=== PATIENT | female | born 1995 ===

== ENCOUNTER 2025-01-03 13:08 | Inpatient (IN) | payer BC, SELFPAY ==
[2025-01-03] VITALS (24 sets, daily range): BP systolic 128–164; BP diastolic 74–93; PULSE 63–71; RESP 16; TEMP 36.6–37.1; O2SAT 97–99
[2025-01-03 12:26] LABS: PROTEIN 55.8 mg/dL; Prot/Crea Ur Ratio 0.29
[2025-01-03 12:34] LABS: HCT 38.9 % (36.0-46.0); HGB 13.4 g/dL (11.2-15.7); MCH 29.5 pg (27.0-33.0); MCHC 34.4 % (32.0-36.0); MCV 86 fL (80-95); MPV 10.6 fL (8.0-11.0); Platelet Count 250 10^3/uL (130-400); RBC 4.54 10^6/uL (3.93-5.22); RDW 12.2 % (11.7-14.6); WBC 12.81 10^3/uL (4.4-10.8)
[2025-01-03 13:28] LABS: ALT 23 U/L (14-59); AST 25 U/L (15-37); Alkaline Phosphatase 247 U/L (46-116); Anion Gap 11.5 mmol/L (3-11); BUN 10 mg/dL (7-18); Bilirubin, Total 0.6 mg/dL (0.2-1.0); CO2 23.5 mmol/L (21.0-32.0); CREATININE 0.6 mg/dL (0.55-1.02); Chloride 103 mmol/L (98-107); Estimated GFR 123.76 (mL/min/1.73m2); Glucose 83 mg/dL (74-106); Potassium 3.8 mmol/L (3.5-5.1); Sodium 138 mmol/L (136-145); Total Protein 6.1 g/dL (6.4-8.2); Uric Acid 5.7 mg/dL (2.6-6.0)
--- NOTE | 2025-01-03 14:55 | HPE_ITS ---
Date of service: 01/03/25 Time of Service: 14:56 Assessment and Plan Assessment and plan (1) : Status: Acute Assessment and plan: 29yo at 38.1 weeks presented to clinic with severe range hypertension, vague symptoms and proteinuria today. was previously uncomplicated. After discussion with patient and OB, we will proceed with induction. Will use nifedipine prn for severe range blood pressures. Hold on mag unless pressures rise. Monitor at least every 30 min, more if pressures are elevated. Start induction now with misoprostil. Likely move to pitocin. She is already 1-2//-3. Feels well now. Anticipate . (2) Gestational hypertension affecting first : Status: Acute OB-HPI Labor/Delivery History of Present Illness Reason for Visit: NST/Labs/BP check Chief Complaint: Signs/Symptoms Gestational HTN , Associated Signs and Symptoms of GestationalHTN: nausea, elevated BP. JOHNNY Calculator Estimated Delivery Date Method Current WG Current Estimate 01/16/25 LMP (Certain) 38w 1d History of Present Expected Delivery Route/Plan 29 yo at 38.1w by sure LMP with GBS+ A+ HepC- HIV-. She had an uncomplicated until pressures became elevated in the severe range today. 3+ protein in clinic with ratio here of .29. She was nauseated and fatigued. She presented to the center for monitoring after administration of 100mg Labetalol PO in the clinic. BP here was initially good in the 130s/80s but began to elevated to the 150s/90s. She is miller mildly here. After discussion with Dr Tan, we will proceed with induction for gestational hypertension. Review of Systems All systems reviewed & are unremarkable except as noted in HPI and below PFSH All Active Problems (Updated 01/03/25 @ 15:13 by Manny Renee) Gestational hypertension affecting first (Acute) (Acute) Social History Smoking risk assessment performed?: No History History 1 Para 0 Hx # Term Pregnancies Multiple births Hx # Pregnancies Ectopic pregnancies AB induced Hx Number of Living Children AB spontaneous Exam Physical Exam Vital signs: Temp Pulse Resp BP Pulse Ox 36.8 C 68 16 150/93 H 99 01/03/25 13:08 01/03/25 14:49 01/03/25 14:20 01/03/25 14:49 01/03/25 13:08 Vital Signs Reviewed: Yes Constitutional Constitutional: no acute distress Detailed Labor and Delivery Exam Dilation: 1.5 Effacement (%): 20 station: -3 Cervix position: posterior Consistency: medium Warren Score: Cervical Points Exam 0 1 2 3 Dilation Closed 1-2cm 3-4 cm 5-6cm Effacement 0-30% 40-50% 60-70% 80% Consistency Firm Medium Soft Station -3 -2 -1,0 +1,+2 Position Posterior Mid Anterior WARREN Score(Cervical Ripeness Score): 2 Amniotic Membrane Status: Intact Monitor Mode: External Contraction Frequency(min): 10 Contraction Duration(sec): 60 Contraction Intensity: Mild Fetus A Heart Rate Baseline: 130 Monitor Accelerations: 15 X 15 Monitor Decelerations: None Variability: Moderate (6-25 BPM) Presentation: Cephalic Categories: Category I HEENT Exam HEENT Exam: Normal Respiratory Exam Respiratory Exam: Normal Cardiovascular Exam Cardiovascular Exam: Normal Abdominal Exam Abdominal Exam: Normal Exam Exam: Normal Extremities Exam Extremities Exam: Normal Back/Spine/Pelvis Exam Back Exam: Normal Pelvis Adequate: Yes Skin Exam Skin Exam: Normal Neurological Exam Neurological Exam: Normal Psychiatric Exam Psychiatric Exam: Normal Results Results Group Beta Strep: Positive Blood Type: A+ Abnormal Lab Findings: Abnormal Labs 01/03/25 12:25 WBC 12.81 H Anion Gap 11.5 H Alkaline Phosphatase 247 H Total Protein 6.1 L Albumin 3.0 L Risk Assessment Risk for Shoulder Dystocia Increased Risk?: No Risk for Pre-Eclampsia Daily Dose ASA Indicated: No Risk for Post- Hemorrhage 36 Weeks: POSITIVE FOR: Gestational HTN or Pre-E At Risk?: Yes Counseled re: Active Management: Yes Date/Initials: [facility] [place] 01/03/25 Risks Reviewed Risks Reviewed Upon Admission: Yes
[2025-01-03] MEDS: miSOPROStol 25 MCG TAB PO (15:30)
[2025-01-03] MEDS: Labetalol 100 MG/20 ML VIAL IVP (23:58)
[2025-01-04] VITALS (111 sets, daily range): BP systolic 114–160; BP diastolic 60–92; PULSE 63–88; RESP 16–18; TEMP 36.3–36.9; O2SAT 92–100
--- NOTE | 2025-01-04 00:07 | W.PM.OBNL1 ---
Date of service: 01/04/25 Time of Service: 00:07 Pelvic Exam Dilation: 2 Effacement (%): 70 station: -2 Cervix Position: anterior Consistency: medium Vaginal Exam Presentation: Cephalic Contractions Monitor Mode: External Contraction Frequency(min): 2 Contraction Duration(sec): 60 Intensity: Moderate/Strong Fetus A Monitor: External (US) Heart Rate Baseline: 130 Presentation: Cephalic Variability: Moderate (6-25 BPM) Categories: Category I FHR Rhythm: Regular Characteristics: Normal Accelerations: 15 X 15 Decelerations: None Amniotic Membrane Status: Intact Assessment and Plan Assessment and plan (1) Gestational hypertension affecting first : Status: Acute Assessment and plan: at 38.1w here for induction due to gestational hypertension. She received one dose of miso at 3pm and began miller every 1-2 minutes. No further induction medications were given and she did progress with labor on her own. SVE is now 2/70/-2 and she is feeling strong contractions crying through some. Her blood pressure did elevate to 160/90 followed by 164/85. patellar pulses are a bit brisk, she denies headache or vision changes. At that point she did receive a dose of 10mg IV Labetalol and blood pressure came down to 146/78. Will continue to monitor closely. If BP does not stay controlled will start magnesium for seizure prophylaxis. Will also start pen when she begins dilating to ensure GBS prophylaxis. (2) : Status: Acute Objective Abnormal lab results 01/03/25 Range/Units 12:25 WBC 12.81 H (4.4-10.8) 10^3/uL Anion Gap 11.5 H (3-11) mmol/L Alkaline Phosphatase 247 H (46-116) U/L Total Protein 6.1 L (6.4-8.2) g/dL Albumin 3.0 L (3.4-5.0) g/dL Temp Pulse Resp BP Pulse Ox 37.0 C 68 16 146/78 H 97 01/03/25 20:53 01/04/25 00:06 01/03/25 20:53 01/04/25 00:06 01/03/25 20:53 Laboratory Results WBC 12.81 10^3/uL (4.4-10.8) H 01/03/25 12:25 RBC 4.54 10^6/uL (3.93-5.22) 01/03/25 12:25 Hgb 13.4 g/dL (11.2-15.7) 01/03/25 12:25 Hct 38.9 % (36.0-46.0) 01/03/25 12:25 MCV 86 fL (80-95) 01/03/25 12:25 MCH 29.5 pg (27.0-33.0) 01/03/25 12:25 MCHC 34.4 % (32.0-36.0) 01/03/25 12:25 RDW 12.2 % (11.7-14.6) 01/03/25 12:25 Plt Count 250 10^3/uL (130-400) 01/03/25 12:25 MPV 10.6 fL (8.0-11.0) 01/03/25 12:25 Sodium 138 mmol/L (136-145) 01/03/25 12:25 Potassium 3.8 mmol/L (3.5-5.1) 01/03/25 12:25 Chloride 103 mmol/L (98-107) 01/03/25 12:25 Carbon Dioxide 23.5 mmol/L (21.0-32.0) 01/03/25 12:25 Anion Gap 11.5 mmol/L (3-11) H 01/03/25 12:25 BUN 10 mg/dL (7-18) 01/03/25 12:25 Creatinine 0.6 mg/dL (0.55-1.02) 01/03/25 12:25 Est GFR (CKD-EPI 2020) 123.76 (mL/min/1.73m2) 01/03/25 12:25 Glucose 83 mg/dL (74-106) 01/03/25 12:25 Uric Acid 5.7 mg/dL (2.6-6.0) 01/03/25 12:25 Calcium 9.0 mg/dL (8.5-10.1) 01/03/25 12:25 Total Bilirubin 0.6 mg/dL (0.2-1.0) 01/03/25 12:25 AST 25 U/L (15-37) 01/03/25 12:25 ALT 23 U/L (14-59) 01/03/25 12:25 Alkaline Phosphatase 247 U/L (46-116) H 01/03/25 12:25 Total Protein 6.1 g/dL (6.4-8.2) L 01/03/25 12:25 Albumin 3.0 g/dL (3.4-5.0) L 01/03/25 12:25 Ur Random Creatinine 192.30 mg/dL 01/03/25 11:55 U Random Total Protein 55.8 mg/dL 01/03/25 11:55 U [place] Prot/Creat Ratio 0.29 01/03/25 11:55 ABO/Rh A Positive 01/03/25 12:25 Antibody Screen NEGATIVE 01/03/25 12:25 Subjective Interval history since last seen: Contractions have become significantly more painful over the last several hours. Results Hemoglobin/Hematocrit: Hgb 13.4 g/dL (11.2-15.7) 01/03/25 12:25 Hct 38.9 % (36.0-46.0) 01/03/25 12:25 Abnormal Lab Findings: Abnormal Labs 01/03/25 12:25 WBC 12.81 H Anion Gap 11.5 H Alkaline Phosphatase 247 H Total Protein 6.1 L Albumin 3.0 L
--- NOTE | 2025-01-04 02:22 | PGE_ITS ---
Date of service: 01/04/25 Time of Service: 02:22 Contractions Monitor Mode: None Fetus A Monitor: Doppler Heart Rate Baseline: 135 FHR Rhythm: Regular Characteristics: Normal Amniotic Membrane Status: Intact Assessment and Plan Assessment and plan (1) Gestational hypertension affecting first : Status: Acute Assessment and plan: Sonia is still doing well although starting to feel more pain with contractions. She is considering an epidural, but not requesting at this time. Her blood pressures are a bit labile, but mostly in goal range of under 150 since dose of labetalol at approx 2300. Will monitor BP q15min. If reaches severe range again, intend to treat per algorithm and start magnesium. I will give her a dose of hydroxizine for anxiety. Monitor closely. (2) : Status: Acute Objective Abnormal lab results 01/03/25 Range/Units 12:25 WBC 12.81 H (4.4-10.8) 10^3/uL Anion Gap 11.5 H (3-11) mmol/L Alkaline Phosphatase 247 H (46-116) U/L Total Protein 6.1 L (6.4-8.2) g/dL Albumin 3.0 L (3.4-5.0) g/dL Temp Pulse Resp BP Pulse Ox 37.0 C 67 16 144/73 H 97 01/03/25 20:53 01/04/25 02:00 01/03/25 20:53 01/04/25 02:00 01/03/25 20:53 Laboratory Results WBC 12.81 10^3/uL (4.4-10.8) H 01/03/25 12:25 RBC 4.54 10^6/uL (3.93-5.22) 01/03/25 12:25 Hgb 13.4 g/dL (11.2-15.7) 01/03/25 12: Hct 38.9 % (36.0-46.0) 01/03/25 12: MCV 86 fL (80-95) 01/03/25 12:25 MCH 29.5 pg (27.0-33.0) 01/03/25 12: MCHC 34.4 % (32.0-36.0) 01/03/25 12: RDW 12.2 % (11.7-14.6) 01/03/25 12:25 Plt Count 250 10^3/uL (130-400) 01/03/25 12:25 MPV 10.6 fL (8.0-11.0) 01/03/25 12:25 Sodium 138 mmol/L (136-145) 01/03/25 12:25 Potassium 3.8 mmol/L (3.5-5.1) 01/03/25 12:25 Chloride 103 mmol/L (98-107) 01/03/25 12:25 Carbon Dioxide 23.5 mmol/L (21.0-32.0) 01/03/25 12:25 Anion Gap 11.5 mmol/L (3-11) H 01/03/25 12:25 BUN 10 mg/dL (7-18) 01/03/25 12:25 Creatinine 0.6 mg/dL (0.55-1.02) 01/03/25 12:25 Est GFR (CKD-EPI 2020) 123.76 (mL/min/1.73m2) 01/03/25 12:25 Glucose 83 mg/dL (74-106) 01/03/25 12:25 Uric Acid 5.7 mg/dL (2.6-6.0) 01/03/25 12:25 Calcium 9.0 mg/dL (8.5-10.1) 01/03/25 12:25 Total Bilirubin 0.6 mg/dL (0.2-1.0) 01/03/25 12:25 AST 25 U/L (15-37) 01/03/25 12:25 ALT 23 U/L (14-59) 01/03/25 12:25 Alkaline Phosphatase 247 U/L (46-116) H 01/03/25 12:25 Total Protein 6.1 g/dL (6.4-8.2) L 01/03/25 12:25 Albumin 3.0 g/dL (3.4-5.0) L 01/03/25 12:25 Ur Random Creatinine 192.30 mg/dL 01/03/25 11:55 U Random Total Protein 55.8 mg/dL 01/03/25 11:55 U [place] Prot/Creat Ratio 0.29 01/03/25 11:55 ABO/Rh A Positive 01/03/25 12:25 Antibody Screen NEGATIVE 01/03/25 12:25 Subjective Interval history since last seen: Sonia is doing well, contractions are strong. She is having panic attacks, increased anxiety and requests medication. Panic attack includes nausea, diarrhea, anxiety, which is what shes had previously with panic attacks. On daily citalopram. Results Hemoglobin/Hematocrit: Hgb 13.4 g/dL (11.2-15.7) 01/03/25 12:25 Hct 38.9 % (36.0-46.0) 01/03/25 12:25 Abnormal Lab Findings: Abnormal Labs 01/03/25 12:25 WBC 12.81 H Anion Gap 11.5 H Alkaline Phosphatase 247 H Total Protein 6.1 L Albumin 3.0 L
[2025-01-04] MEDS: hydrOXYzine HCL 25 MG TAB PO (02:49)
--- NOTE | 2025-01-04 05:54 | W.ANESPRE ---
General Info Date of Service Date Performed: 01/04/25 Height: 64 ft Weight: 73.028 kg Body Mass Index (BMI): 0.1 Meds Allergies and Home Medications Current Visit Medications: Current Medications Generic Name Dose Route Start Last Admin Trade Name Freq PRN Reason Stop Dose Admin Fentanyl/Ropivacaine 200 ml 01/04/25 05:30 Fentanyl/Ropivacaine 2 Mcg/Ml And 0.1% 200 Ml [place] EP DIRECTED [facility] Hydralazine HCl 0 mg 01/03/25 14:55 Hydralazine 20 Mg/Ml Vial IVP DIRECTED PRN Blood Pressure Ringer's Solution 1,000 mls @ 200 mls/hr 01/03/25 15:00 IV INFUSION COURTNEY Ringer's Solution 1,000 mls @ 125 mls/hr 01/04/25 05:30 IV INFUSION [facility] Oxytocin/Sodium Chloride 30 unit in 500 mls @ 4 mls/hr 01/04/25 05:30 Pitocin/Normal Saline IV INFUSION [facility] Protocol 4 MILLIUNITS/MIN IV Miscellaneous Supplies 1 each 01/03/25 15:00 Iv Access IV DIRECTED [facility] Labetalol HCl 0 mg 01/03/25 14:55 01/03/25 23:58 Labetalol 100 Mg/20 Ml Vial IVP 10 mg DIRECTED PRN Administration Blood Pressure Misoprostol 25 mcg 01/03/25 15:00 01/03/25 15:30 Misoprostol 25 Mcg Tab PO 25 mcg Q4H COURTNEY Administration Nifedipine 0 mg 01/03/25 14:55 Nifedipine 10 Mg Cap PO DIRECTED PRN Blood Pressure Sodium Chloride 0 ml 01/03/25 14:49 Normal Saline Flush 10 Ml Syr IVP PRN PRN Sodium Chloride 0 ml 01/03/25 20:00 Normal Saline Flush 10 Ml Syr IVP BID COURTNEY Sodium Chloride 0 ml 01/03/25 14:49 Normal Saline 10 Ml Vial IJ DIRECTED PRN Terbutaline Sulfate 0.25 mg 01/03/25 14:49 Terbutaline 1 Mg/Ml Vial SC PRN PRN PFSH Active Problems Active Problems: Problem Status Onset Code Gestational hypertension affecting first Acute O13.9 Acute Z34.90 Tobacco Smoking/Tobacco Use Status: Never Passive smoking exposure: No Alcohol Alcohol Intake: former Substance Use Substance use: Occasionally Substance use type: marijuana Prental History History 1 Para 0 Hx # Term Pregnancies Multiple births Hx # Pregnancies Ectopic pregnancies AB induced Hx Number of Living Children AB spontaneous Vital Signs and Lab Results Vital Signs Most Recent Vital Signs in EMR: Most Recent Vital Signs Temp Pulse Resp BP Pulse Ox 37.0 C 74 16 142/79 H 97 01/03/25 20:53 01/04/25 05:06 01/03/25 20:53 01/04/25 05:06 01/03/25 20:53 Lab Results 01/03/25 12:25 01/03/25 12:25 Blood Type / Crossmatch: Antibody Screen NEGATIVE 01/03/25 Complete Blood Count: White Blood Count 12.81 10^3/uL (4.4-10.8) H 01/03/25 12:25 Red Blood Count 4.54 10^6/uL (3.93-5.22) 01/03/25 12:25 Hemoglobin 13.4 g/dL (11.2-15.7) 01/03/25 12:25 Hematocrit 38.9 % (36.0-46.0) 01/03/25 12:25 Platelet Count 250 10^3/uL (130-400) 01/03/25 12:25 Complete Metabolic Panel: Sodium 138 mmol/L (136-145) 01/03/25 12:25 Potassium 3.8 mmol/L (3.5-5.1) 01/03/25 12:25 Chloride 103 mmol/L (98-107) 01/03/25 12:25 Carbon Dioxide 23.5 mmol/L (21.0-32.0) 01/03/25 12:25 BUN 10 mg/dL (7-18) 01/03/25 12:25 Creatinine 0.6 mg/dL (0.55-1.02) 01/03/25 12:25 Est GFR (CKD-EPI 2020) 123.76 (mL/min/1.73m2) 01/03/25 12:25 Calcium 9.0 mg/dL (8.5-10.1) 01/03/25 12:25 Albumin 3.0 g/dL (3.4-5.0) L 01/03/25 12:25 Glucose 83 mg/dL (74-106) 01/03/25 12:25 Liver Function Panel: Alanine Aminotransferase (ALT/SGPT) 23 U/L (14-59) 01/03/25 12:25 Aspartate Amino Transf (AST/SGOT) 25 U/L (15-37) 01/03/25 12:25 Coagulation Panel: No Data to Display Cardiac Panel: No Data to Display Arterial Blood Gas: No Data to Display Venous Blood Gas: No Data to Display Pancreas Panel: No Data to Display Thyroid Panel: No Data to Display Infectious Disease: No Data to Display Blood Cultures: No Data to Display Toxicology Panel: No Data to Display Panel: No Data to Display Anesthesia Assessment and Plan Anesthesia History Personal History: No History of Anesthesia Complications Family History: No Family History of Anesthesia Complications Exercise Tolerance Exercise Tolerance: Metabolic Equivalents>4 Pertinent Negatives Pertinent Negatives: No Major Cardiovascular Symptoms or Complaints and No Major Pulmonary Symptoms or Complaints Cardiac & Pulmonary Exam Cardiac Exam: Normal S1/S2 Heart Sounds Pulmonary Exam: Clear Bilateral Breath Sounds Implantable Cardiac Device Does patient have a Pacemaker or an ICD?: No Airway Exam Known Difficult Airway: No Mallampati Class: 2 Mouth Opening: Normal (> 3cm) Thyromental Distance: Greater than 3 cm Neck Range of Motion: Full ROM Neck Circumference: Normal Teeth Condition: Normal Dentition ASA Classification ASA Score: ASA 2 Emergency Case?: No NPO Status NPO Status: NPO Clears >2 hours, Solids >8 hours Status Status: Confirmed Anesthesia Plan Resuscitation Status: Full Code Anesthesia Technique: Labor Epidural Airway Planned: Natural Airway Monitors Used: Standard Monitors
[2025-01-04] MEDS: Lactated Ringers 1,000 ML 125 ML IV (06:00)
[2025-01-04] MEDS: Bupivacaine 0.25% Pres-Free 10 ML VIAL EP (06:30)
[2025-01-04] MEDS: fentaNYL 100 MCG/2 ML VIAL EP (06:30)
[2025-01-04] MEDS: FentaNYL/ROPIvacaine 2 mcg/ml and 0.1% 200 ML CADD Cassette EP (06:31)
--- NOTE | 2025-01-04 06:41 | W.ANESNEU ---
Epidural/Spinal Catheter Date Performed: 01/04/25 Procedure Start: 06:17 Procedure Stop: 06:42 Requesting Provider: Manny Renee Procedure Location: Obstetrics Reason Performed: Labor Epidural Standard Monitors Applied: Blood Pressure, SpO2 and See EMR for corresponding vital signs Patient Position: Sitting Sedation Given (Indicate Dose Given): No Sedation given Patient Mental Status: Awake Sterility: Hand Hygiene, Surgical Cap, Surgical Mask, Sterile Gloves, Sterile Drape/Sheet and Chlorhexidine Procedure Location: L3-L4 Interspace Epidural Needle: Tuohy 18 Gauge Needle Length: 3.5 Inch Needle Approach: Midline Epidural Procedure: Skin Prepped, Sterile Drape Placed, 1% Lidocaine to skin and subcutaneous tissue with 25G needle, Tuohy Needle placed, SANGITA to Saline Used, Epidural Catheter Placed, Negative Heme, Negative CSF Flow and Tuohy Needle Removed Catheter Placed?: Catheter Placed Test Dose (Indicate Dose Given): 3ml 1.5% Lidocaine with 1:200K Epinephrine Given and Negative Test Dose Loss of Resistance Depth (cm): 6 Catheter depth at skin (cm): 11 Dressing: [place] Dressing Placed and Mastisol Used Epidural Provider Bolus (Indicate Dose Given): Total bolus dose given in 3-5 ml divided doses (@0623) and Total Bupivacaine 0.25% Given (ml) Dose:: 7 ml Additives (Indicate Dose Given ): Fentanyl PF Dose:: 100 mcg Infusion Medication: Medication Infusion Began Medication Infusion: Ropivacaine 0.1% with Fentanyl 2mcg/ml (@0637) Maintenance Infusion Rate (ml/hour): 10 PCEA Bolus Dose (ml): 5 Block Level: N/A Paresthesia: None Ultrasound: Not Used Number of Attempts (See previous attempts in note section): 1 Procedure Tolerated: No Complications and Patient tolerated well Procedure Outcome: Successful Procedure Comment:: No LE weakness, full relief from contractions. Performed By: Delmy Fields
[2025-01-04] MEDS: Oxytocin/Normal Saline 30 UNIT/500 ML BAG 2 UNITS IV (06:49)
--- NOTE | 2025-01-04 07:19 | PGE_ITS ---
Date of service: 01/04/25 Time of Service: 07:19 Pelvic Exam Dilation: 2 station: -2 Cervix Position: mid Vaginal Exam Presentation: Cephalic Contractions Monitor Mode: External Contraction Frequency(min): 4 Contraction Duration(sec): 60 Intensity: Moderate/Strong Fetus A Monitor: External (US) Heart Rate Baseline: 130 Presentation: Cephalic Variability: Moderate (6-25 BPM) Categories: Category II FHR Rhythm: Regular Characteristics: Normal Accelerations: 15 X 15 Decelerations: Late (mild late decelerations for 10 minutes that resolved spontaneously) Recurrence: Episodic Amniotic Membrane Status: Intact Assessment and Plan Assessment and plan (1) : Status: Acute (2) Gestational hypertension affecting first : Status: Acute Assessment and plan: Sonia was becoming increasingly uncomfortable, and labor was not progressing. We discussed epidural and pitocin and the risks and benefits of both. She did elect to get an epidural prior to starting pitocin. Her BP is stable without needing any treatment since 0. She denies headache, vision changes, increased swelling. Reflexes remain the same. Objective Abnormal lab results 01/03/25 Range/Units 12:25 WBC 12.81 H (4.4-10.8) 10^3/uL Anion Gap 11.5 H (3-11) mmol/L Alkaline Phosphatase 247 H (46-116) U/L Total Protein 6.1 L (6.4-8.2) g/dL Albumin 3.0 L (3.4-5.0) g/dL Temp Pulse Resp BP Pulse Ox 37.0 C 67 16 117/63 98 01/03/25 20:53 01/04/25 07:18 01/03/25 20:53 01/04/25 07:18 01/04/25 07:15 Laboratory Results WBC 12.81 10^3/uL (4.4-10.8) H 01/03/25 12:25 RBC 4.54 10^6/uL (3.93-5.22) 01/03/25 12:25 Hgb 13.4 g/dL (11.2-15.7) 01/03/25 12:25 Hct 38.9 % (36.0-46.0) 01/03/25 12:25 MCV 86 fL (80-95) 01/03/25 12:25 MCH 29.5 pg (27.0-33.0) 01/03/25 12:25 MCHC 34.4 % (32.0-36.0) 01/03/25 12:25 RDW 12.2 % (11.7-14.6) 01/03/25 12:25 Plt Count 250 10^3/uL (130-400) 01/03/25 12:25 MPV 10.6 fL (8.0-11.0) 01/03/25 12:25 Sodium 138 mmol/L (136-145) 01/03/25 12:25 Potassium 3.8 mmol/L (3.5-5.1) 01/03/25 12:25 Chloride 103 mmol/L (98-107) 01/03/25 12:25 Carbon Dioxide 23.5 mmol/L (21.0-32.0) 01/03/25 12:25 Anion Gap 11.5 mmol/L (3-11) H 01/03/25 12:25 BUN 10 mg/dL (7-18) 01/03/25 12:25 Creatinine 0.6 mg/dL (0.55-1.02) 01/03/25 12:25 Est GFR (CKD-EPI 2020) 123.76 (mL/min/1.73m2) 01/03/25 12:25 Glucose 83 mg/dL (74-106) 01/03/25 12:25 Uric Acid 5.7 mg/dL (2.6-6.0) 01/03/25 12:25 Calcium 9.0 mg/dL (8.5-10.1) 01/03/25 12:25 Total Bilirubin 0.6 mg/dL (0.2-1.0) 01/03/25 12:25 AST 25 U/L (15-37) 01/03/25 12:25 ALT 23 U/L (14-59) 01/03/25 12:25 Alkaline Phosphatase 247 U/L (46-116) H 01/03/25 12:25 Total Protein 6.1 g/dL (6.4-8.2) L 01/03/25 12:25 Albumin 3.0 g/dL (3.4-5.0) L 01/03/25 12:25 Ur Random Creatinine 192.30 mg/dL 01/03/25 11:55 U Random Total Protein 55.8 mg/dL 01/03/25 11:55 U [place] Prot/Creat Ratio 0.29 01/03/25 11:55 ABO/Rh A Positive 01/03/25 12:25 Antibody Screen NEGATIVE 01/03/25 12:25 Subjective Interval history since last seen: At last check, Sonia was crying through some contractions and requesting additional pain management. She also had not progressed overnight. We discussed epidural and pitocin augmentation. Her blood pressures remained stable all below 150/100 without treatment. Results Hemoglobin/Hematocrit: Hgb 13.4 g/dL (11.2-15.7) 01/03/25 12:25 Hct 38.9 % (36.0-46.0) 01/03/25 12:25 Abnormal Lab Findings: Abnormal Labs 01/03/25 12:25 WBC 12.81 H Anion Gap 11.5 H Alkaline Phosphatase 247 H Total Protein 6.1 L Albumin 3.0 L
[2025-01-04] MEDS: Lactated Ringers 250 ML 500 ML IV (08:10)
--- NOTE | 2025-01-04 08:47 | W.PM.OBNL1 ---
Date of service: 01/04/25 Time of Service: 08:47 Informed Consent Informed Consent: Section Delivery (by Dr Acosta) Pelvic Exam Dilation: 3 Effacement (%): 80 station: -2 Cervix Position: mid Vaginal Exam Presentation: Cephalic Comments: AROM performed with light mec, moderate fluid. Contractions Monitor Mode: External Contraction Frequency(min): 3 Contraction Duration(sec): 90 Intensity: Moderate/Strong Fetus A Monitor: External (US) Heart Rate Baseline: 130 Presentation: Vertex Variability: Moderate (6-25 BPM) Categories: Category II FHR Rhythm: Regular Characteristics: Normal Accelerations: 15 X 15 Decelerations: Late Recurrence: Recurrent Amniotic Membrane Status: Ruptured Rupture Method: Artifical Amniotic Fluid: Meconium (light) Date of Membrane Rupture: 01/04/25 Time of Membrane Rupture: 08:23 Assessment Note: Recurrent late decelerations since starting pitocin, now stopped. Category 2. Assessment and Plan Assessment and plan (1) : Status: Acute (2) Gestational hypertension affecting first : Status: Acute Assessment and plan: Chanell pain is well managed with epidural, howevere baby did not tolerate pitocin. He had recurrent late decelerations. Pitocin was stopped and strip improved slightly. I did AROM in the hope of progressing labor, however baby responded poorly with a prolonged decel, no cord prolapse, and did recover with position changes. Dr Acosta was consulted and she, I, and the patient and her supports did elect to proceed to section. Sonia is comfortable with this plan. (3) distress affecting delivery: Status: Acute Objective Abnormal lab results 01/03/25 Range/Units 12:25 WBC 12.81 H (4.4-10.8) 10^3/uL Anion Gap 11.5 H (3-11) mmol/L Alkaline Phosphatase 247 H (46-116) U/L Total Protein 6.1 L (6.4-8.2) g/dL Albumin 3.0 L (3.4-5.0) g/dL Temp Pulse Resp BP Pulse Ox 37.0 C 77 16 117/60 98 01/03/25 20:53 01/04/25 08:45 01/04/25 08:01 01/04/25 08:02 01/04/25 08:45 Laboratory Results WBC 12.81 10^3/uL (4.4-10.8) H 01/03/25 12:25 RBC 4.54 10^6/uL (3.93-5.22) 01/03/25 12:25 Hgb 13.4 g/dL (11.2-15.7) 01/03/25 12:25 Hct 38.9 % (36.0-46.0) 01/03/25 12:25 MCV 86 fL (80-95) 01/03/25 12:25 MCH 29.5 pg (27.0-33.0) 01/03/25 12:25 MCHC 34.4 % (32.0-36.0) 01/03/25 12:25 RDW 12.2 % (11.7-14.6) 01/03/25 12:25 Plt Count 250 10^3/uL (130-400) 01/03/25 12:25 MPV 10.6 fL (8.0-11.0) 01/03/25 12:25 Sodium 138 mmol/L (136-145) 01/03/25 12:25 Potassium 3.8 mmol/L (3.5-5.1) 01/03/25 12:25 Chloride 103 mmol/L (98-107) 01/03/25 12:25 Carbon Dioxide 23.5 mmol/L (21.0-32.0) 01/03/25 12:25 Anion Gap 11.5 mmol/L (3-11) H 01/03/25 12:25 BUN 10 mg/dL (7-18) 01/03/25 12:25 Creatinine 0.6 mg/dL (0.55-1.02) 01/03/25 12:25 Est GFR (CKD-EPI 2020) 123.76 (mL/min/1.73m2) 01/03/25 12:25 Glucose 83 mg/dL (74-106) 01/03/25 12:25 Uric Acid 5.7 mg/dL (2.6-6.0) 01/03/25 12:25 Calcium 9.0 mg/dL (8.5-10.1) 01/03/25 12:25 Total Bilirubin 0.6 mg/dL (0.2-1.0) 01/03/25 12:25 AST 25 U/L (15-37) 01/03/25 12:25 ALT 23 U/L (14-59) 01/03/25 12:25 Alkaline Phosphatase 247 U/L (46-116) H 01/03/25 12:25 Total Protein 6.1 g/dL (6.4-8.2) L 01/03/25 12:25 Albumin 3.0 g/dL (3.4-5.0) L 01/03/25 12:25 Ur Random Creatinine 192.30 mg/dL 01/03/25 11:55 U Random Total Protein 55.8 mg/dL 01/03/25 11:55 U [place] Prot/Creat Ratio 0.29 01/03/25 11:55 ABO/Rh A Positive 01/03/25 12:25 Antibody Screen NEGATIVE 01/03/25 12:25 Subjective Patient Reports: No new Complaints Interval history since last seen: Epidural is highly effective for pain management, she is not feeling contractions. Results Hemoglobin/Hematocrit: Hgb 13.4 g/dL (11.2-15.7) 01/03/25 12:25 Hct 38.9 % (36.0-46.0) 01/03/25 12:25 Abnormal Lab Findings: Abnormal Labs 01/03/25 12:25 WBC 12.81 H Anion Gap 11.5 H Alkaline Phosphatase 247 H Total Protein 6.1 L Albumin 3.0 L
--- NOTE | 2025-01-04 09:03 | PGE_ITS ---
Date of Service Date of service: 01/04/25 Time of Service: 09:03 Assessment and Plan Assessment and plan (1) Pre-eclampsia: Status: Acute Assessment and plan: 29-year-old G1, P0 at 38 weeks and 1 day undergoing induction of labor for preeclampsia without severe features. She was induced with Cytotec overnight. She received an epidural this morning, and was initiated on Pitocin after stalling at 2 to 3 cm despite contractions. Upon initiation of the Pitocin, the baby began to exhibit recurrent late decelerations, though variability remained moderate. Membranes were ruptured to meconium stained fluid approximately an hour ago, and at the time of rupture the baby exhibited a modest decel which recovered with repositioning. I was called to the room for assessment. The patient's SVE remained reportedly unchanged per the attending physician (FP; 2 to 3 cm\80%\ -1). With nurse, family, and staff in the room, the patient I discussed options for management of her . We discussed that her baby overall looks reassuring currently and that there is room to continue to pursue vaginal delivery; however, there is the option for proceeding with section for suspicious testing remote from delivery. Patient exhibited an independent interest in pursuing section in an abundance of caution. We discussed that section does come with risks. We discussed that there is risks of bleeding, infection, damage to surrounding tissues (including, but not limited to, the bowel, the bladder, major nerves and vessels, the ureters, the uterus, the ovaries, and any other surrounding structures), and blood clots to the legs into the lungs. We discussed that there are risks associated with anesthesia as well as unforeseen complications. We discussed that blood transfusions are occasionally necessary in the event of excessive blood loss. All questions were answered to the patient's satisfaction and she expressed desire to proceed with the procedure. She was consented for section with transfusion of blood products as necessary for suspicious testing remote from delivery. Objective Last Vital Signs Temp 98.6 F 01/03/25 20:53 Pulse 70 01/04/25 09:00 Resp 16 01/04/25 08:01 BP 136/82 01/04/25 08:53 Pulse Ox 98 01/04/25 09:00 Laboratory Results - last 24 hr 01/03/25 01/03/25 11:55 12:25 WBC 12.81 H RBC 4.54 Hgb 13.4 Hct 38.9 MCV 86 MCH 29.5 MCHC 34.4 RDW 12.2 Plt Count 250 MPV 10.6 Sodium 138 Potassium 3.8 Chloride 103 Carbon Dioxide 23.5 Anion Gap 11.5 H BUN 10 Creatinine 0.6 Est GFR (CKD-EPI 2020) 123.76 Glucose 83 Uric Acid 5.7 Calcium 9.0 Total Bilirubin 0.6 AST 25 ALT 23 Alkaline Phosphatase 247 H Total Protein 6.1 L Albumin 3.0 L Ur Random Creatinine 192.30 U Random Total Protein 55.8 U [place] Prot/Creat Ratio 0.29 ABO/Rh A Positive Antibody Screen NEGATIVE Time Spent with Patient Time Spent with Patient: 25-34 minutes Time was spent: preparing to see the patient(eg.review tests), obtaining and/or reviewing separately otained hiistory, ordering medications,tests, procedures, referring, communicating with other health healthcare administration internship, indepentently interpreting results and counseling the patient
[2025-01-04] MEDS: AZITHROMYCIN 500 MG in Normal Saline 250 ML 250 MG IVPB (09:05)
--- NOTE | 2025-01-04 09:40 | PLAC_PTH ---
PATIENT: Sonia Crawford LOC: OBS U#:[id number] AGE/SX: 29/F ROOM: OBS.304 RE01/03/[address]: Manny Renee : 1995 BED: A DIS: 01/06/2025 SPEC #: [id number] RECD: 01/04/25 12:18 STATUS: EMRE REReagan #: [id number] AUBREE: 01/04/25 09:[address]: Manny Renee DEPT: Surgical Specimen RECD BY: Neris Odonnell Tissues: 1 - PLACENTA (3RD TRIMESTER) Procedures: GROSS AND MICRO LEVEL 5 Comments: [id number]
[2025-01-04] MEDS: ceFAZolin 2 GM/50 ML BAG IVPB (09:42)
[2025-01-04] MEDS: Lactated Ringers 1,000 ML 200 ML IV (10:13)
--- NOTE | 2025-01-04 12:58 | W.PM.OBCSECT ---
Date of service: 01/04/25 Time of Service: 12:58 Operative Note Operative Note Delivery Method: Unscheduled STAT: No and Primary NTSV>37 Weeks: Yes DATE OF PROCEDURE: 01/04/25 PRE-OP DIAGNOSES: Suspicious course remote from delivery; Pre-eclampsia without SF PROCEDURE: Primary low-transverse section SURGEON: Giana Acosta Anesthesia: spinal Estimated blood loss (mL): 350 Pathology: other (placenta ) Complications: None Patient was transported to: PACU Patient's condition: stable Indications: Patient is a 29-year-old at 38 weeks (patient of [facility]) who presented to labor and delivery on 01/03/2025 for induction of labor for preeclampsia without severe features. She was induced with Mr. Ahumada and ultimately received an epidural. She was augmented with Pitocin; however, shortly after initiating Pitocin, the baby began to exhibit recurrent late decelerations on the monitor. These resolved with conservative interventions. I decision was made to proceed with rupture of membranes shortly after discontinuing the Pitocin and the baby stabilizing. At the time of rupture patient was 2 to 3 cm dilated and was ruptured to meconium stained fluid. There was a notable deceleration and heart tones at the time of rupture requiring my assistance and evaluation. At the time of my assessment, the status was overall reassuring. However, a discussion was had with mother regarding growing concerns for intolerance of labor and the lack of progression over several hours. We discussed proceeding and continuing pursuit of a vaginal delivery versus section. Patient was thoroughly counseled on risks versus benefits of each. Patient ultimately decided on section. She was consented for section and prepped for the OR. Findings: SVE 2 to 3 cm. Largely unremarkable nominal and pelvic anatomy. Lower uterine segment well-developed. Meconium stained fluid. Viable male in cephalic presentation. No nuchal present. Normal ovaries and tubes. Procedure Description: Patient was taken to the OR with IV fluids running.? She received 2 grams of Ancef and 500 mg Azithromycin for prophylaxis prior to heading to the OR. Previous epidural was removed and spinal anesthesia was established. The patient was positioned into supine positioning with her arms abducted at her sides.? The vagina was prepped with Betadine.? A espinoza catheter was already in place. The abdomen was prepped with Chlorohexedine and allowed to dry for three minutes.? The patient was then draped in the usual, sterile fashion, and the bed was placed at a leftward tilt.? The abdomen was marked with the intended pfannestiel site. A timeout was performed; the patient and procedure were identified.? Testing of the levels of anesthesia was found to be adequate.?? A Pfannenstiel incision was created with scalpel and carried down to the level of the fascia with bovie cautery.? The fascia was incised, and the incision was carried laterally with curved hernandez scissors. The anterior leaf of fascia was then tented up with kocker claps, and the underlying rectus muscle was dissected off with a combination of blunt and sharp dissection.? The same was done for the inferior leaf.? The midline of the rectus was identified and bluntly dissected revealing the underlying peritoneum.? The peritoneum was tented up with stats and incised with metzenbaum scissors after assuring no underlying bowel.? A large Brent retractor was placed.? A bladder flap was created using Metzenbaum scissors and Russians.? A low transverse incision was made using a fresh #10 blade, and the incision was extended using blunt traction.? The fluid sac was ruptured with an allis clamp, and meconium stained fluid was noted. The fetus was presenting as a vertex. The head was brought to the level of the hysterotomy with careful attention to avoid using the incision as a fulcrum.? The rest of the body followed easily with gentle fundal pressure from the business support assistant. The cord was clamped twice and cut and the baby transferred to the warmer, awaiting the pediatric staff.? Pitocin was initiated.? Cord blood was obtained. The placenta was then delivered with assistance and fundal massage. The uterus was explored to ensure all tissue was cleared. The uterus was then exteriorized for better visualization and wrapped in a moistened lap.? Penningtons were used to grasp the lower uterine segment, and the uterine incision was closed with a running locked layer of 0 Vicryl.? A second layer of 0 Vicryl imbricating stitch was used to secure the hysterotomy.? An initial assessment found in the hysterotomy hemostatic.??? Stats were used to grasp the peritoneum, and the layer was closed using a running 2-0 vicryl with careful attention to guard any underlying bowel with retraction.? Careful inspection of the rectus muscle appreciated good hemostasis.? The right apex of the fascia was secured with a kocker clamp, and the fascia was then closed with a running 0-vicryl.? Careful inspection of the subcuticular tissues appreciated good hemostasis, and this layer was closed with a running 3-0 vicryl.? 20 cc's of 0.25% Marcaine was injected into the subcuticular tissues, and hemostasis was again confirmed.? The skin was reapproximated with a 4-0 vicryl subcuticular stitch.? The patient tolerated the procedure well.? Upon removal of the covers and crede, vaginal bleeding was initially a little more brisk than expected. 1 gram TXA was ordered in an abundance of caution. The incision was cleaned and covered with a telfa sheet, ABD pad, and medipore tape.? She was then taken to the PACU in good condition. [place] Gestational Age in Weeks/Days: 38 Weeks and 2 Days Infant Gender: Male weight: 5 lb 2.012 oz
--- NOTE | 2025-01-04 13:47 | W.ANESPOSTOP ---
Postoperative Evaluation Date, Time and Location Date Performed: 01/04/25 Time Performed: 13:39 Patient Location: Obstetrics Vital Signs Most Recent Imported Vital Signs: Most Recent Vital Signs Temp Pulse Resp BP Pulse Ox 37.0 C 70 18 144/75 H 98 01/03/25 20:53 01/04/25 13:46 01/04/25 12:50 01/04/25 13:44 01/04/25 13:46 Pain Score Most Recent Pain Score: Most Recent Pain Score Pain Level [Abdomen] 0 01/04/25 11:15 Pain Level 1 01/04/25 12:50 Assessment Mental Status: Awake (Alert & Oriented to Patient Baseline) Airway and Respiratory Function: Patent airway with normal (patient baseline) respiratory exam Cardiovascular Function: Hemodynamically Stable Hydration Status: Adequately Hydrated Nausea & Vomiting: No Nausea or Vomiting Pain: Pain is tolerable per patient Peripheral Nerve Block: Patient did not receive a nerve block
[2025-01-04] MEDS: Citalopram 20 MG TAB PO (14:47)
[2025-01-04] MEDS: Ketorolac 30 MG/ML VIAL IVP ×2 (16:33→23:15)
[2025-01-04] MEDS: Normal Saline Flush 10 ML SYR IVP (16:35)
[2025-01-05 01:12] VITALS: BP 128/86; PULSE 83; RESP 18; TEMP 36.8
[2025-01-05] MEDS: Ketorolac 30 MG/ML VIAL IVP (04:45)
[2025-01-05] MEDS: Normal Saline Flush 10 ML SYR IVP (05:40)
[2025-01-05 06:36] LABS: Abs Immature Grans 0.11 10^3/uL (0.0-0.06); Absolute Basophil Count 0.05 10^3/uL (0.0-0.2); Basophils % 0.3 %; Eosinophils % 0.5 %; HCT 30.7 % (36.0-46.0); HGB 10.5 g/dL (11.2-15.7); Immature Grans % 0.7 %; Lymphocytes % 7.9 %; MCH 29.6 pg (27.0-33.0); MCHC 34.2 % (32.0-36.0); MCV 87 fL (80-95); MPV 10.9 fL (8.0-11.0); Monocytes % 6.8 %; Neutrophils % 83.8 %; Platelet Count 210 10^3/uL (130-400); RBC 3.55 10^6/uL (3.93-5.22); RDW 12.7 % (11.7-14.6); WBC 16.43 10^3/uL (4.4-10.8)
[2025-01-05 06:42] LABS: Absolute Eosinophil Count 0.08 10^3/uL (0.0-0.7); Absolute Monocyte Count 1.12 10^3/uL (0.1-0.8); Absolute Neutrophil Count 13.77 10^3/uL (1.2-6.7)
[2025-01-05 08:23] VITALS: BP 131/87; PULSE 68; RESP 18; TEMP 36.7; O2SAT 97
[2025-01-05 12:04] VITALS: BP 141/83; PULSE 77; RESP 18; TEMP 36.8; O2SAT 96
--- NOTE | 2025-01-05 13:06 | W.PM.PROGNOT ---
Date of Service Date of service: 01/05/25 Time of Service: 13:06 Assessment and Plan Assessment and plan (1) S/P section: Status: Acute Assessment and plan: 29 yo G1 now P1001 s/p 38 week primary low transverse section on 01/04 AM; EBL 350 cc's - Rh+ / Rub I / VZV I / GBS +; she did not recieve Amp or PCN - IOL for pre-eclampsia without severe features - largely uncomplicated outside preE w/o SF, GBS positive status, and anxiety / depression (controlled on Citalopram and Hydroxyzine) - Induced with cytotec. Recieved an epidural and augmented with Pitocin - Labor course complicated by decelerations, indication for - course currently uncomplicated - Meeting all milestones - - Incision is C/D/I - Pain well controlled - Lochia appropriate - Contraception discussion: Per primary ([facility]) - Pain meds discussion pending - Baby recovering well; complicated by suspected CCAM - Counseling regarding PP depression pending - Discharge: Anticipate tomorrow (01/06) AM - - - - - - - - - - - - - -- 01/05/2025 AM (Karla): Found resting comfortably on the couch with her and baby. In very good spirits. Ambulating, urinating, and eating all without issue. Incision inspected and initial bandage removed; replaced with Miliplex. Still appreciated sub-dermal button-hole defect along left apex. No tenderness or evidence of bleeding. Blood pressures remain stable and outside of severe range. Patient denies s/sx of pre-eclampsia. (2) Anxiety and depression: Status: Chronic (3) Pre-eclampsia: Status: Acute Subjective Subjective Interval history since last seen: 29 yo G1 now P1001 s/p 38 week primary low transverse section, POD 1. She is in good spirits. She is ambulating, urinating, and eating all without issue. She is well. Pain is well controlled and lochia is appropriate. Exam Narrative Exam Narrative: general: Well nourished female in no immediate distress pulm: No overt respiratory distress Abd: Soft, non-distended, non-tender. Fundus firm and low. Incision C/D/I; Mipilex dressing placed Ext: +1 edema noted equally bilaterally Affect: Appropriate; pleasant Objective Last Vital Signs Temp 98.3 F 01/05/25 12:04 Pulse 77 01/05/25 12:04 Resp 18 01/05/25 12:04 BP 141/83 H 01/05/25 12:04 Pulse Ox 96 01/05/25 12:04 Laboratory Results - last 24 hr 01/05/25 06:05 WBC 16.43 H RBC 3.55 L Hgb 10.5 L D Hct 30.7 L MCV 87 MCH 29.6 MCHC 34.2 RDW 12.7 Plt Count 210 MPV 10.9 Immature Gran % 0.7 Neutrophils % 83.8 Lymphocytes % 7.9 Monocytes % 6.8 Eosinophils % 0.5 Basophils % 0.3 Nucleated RBC % 0.0 Absolute Neutrophils 13.77 H Absolute Lymphocytes 1.30 Absolute Monocytes 1.12 H Absolute Eosinophils 0.08 Absolute Basophils 0.05 Time Spent with Patient Time Spent with Patient: 25-34 minutes Time was spent: preparing to see the patient(eg.review tests), obtaining and/or reviewing separately otained hiistory, ordering medications,tests, procedures, referring, communicating with other health behavioral health care manager, indepentently interpreting results, counseling the patient and care coordination
[2025-01-05] MEDS: Acetaminophen 325 MG TAB 650 MG PO ×2 (15:23→19:30)
[2025-01-05] MEDS: Ibuprofen 600 MG TAB PO ×2 (15:23→21:05)
[2025-01-05 15:28] VITALS: BP 142/85; PULSE 76; RESP 16; TEMP 36.8; O2SAT 97
[2025-01-05 17:40] VITALS: BP 153/99
[2025-01-05 18:01] VITALS: BP 130/83; PULSE 72
[2025-01-06 00:50] VITALS: BP 146/82; PULSE 72; TEMP 36.8
[2025-01-06 02:00] VITALS: BP 143/90
[2025-01-06] MEDS: Acetaminophen 325 MG TAB 650 MG PO ×2 (02:00→11:58)
[2025-01-06 02:37] VITALS: BP 142/68
[2025-01-06] MEDS: Ibuprofen 600 MG TAB PO ×2 (04:31→11:59)
[2025-01-06 08:09] VITALS: BP 144/93; PULSE 80; RESP 18; TEMP 36.8; O2SAT 97
--- NOTE | 2025-01-06 08:36 | W.PM.OBPNV1 ---
Date of service: 01/06/25 Time of Service: 08:37 Assessment and Plan Assessment and plan (1) S/P section: Status: Acute Assessment and plan: 29 yo G1 now P1001 s/p 38 week primary low transverse section on 01/04 AM; EBL 350 cc's - Rh+ / Rub I / VZV I / GBS +; she did not recieve Amp or PCN - IOL for pre-eclampsia without severe features - largely uncomplicated outside preE w/o SF, GBS positive status, and anxiety / depression (controlled on Citalopram and Hydroxyzine) - Induced with cytotec. Recieved an epidural and augmented with Pitocin - Labor course complicated by decelerations, indication for - course currently uncomplicated - Meeting all milestones - - Incision is C/D/I - Pain well controlled - Lochia appropriate - Contraception discussion: Per primary ([facility]); considering rhythm method. Discussed recommendations to wait 18 months between pregnancies - Patient reports family h/o addiction issues and she wishes to avoid narcotics; outfitted with Tylenol, Motrin, Flexeril, and Gabapentin - Baby recovering well; complicated by suspected CCAM - Counseled regarding PP depression - Counseled on pelvic rest for 8 weeks - Discharge: Cleared for this AM; will check blood pressures at home. F/U appt scheduled for 1 week. - - - - - - - - - - - - - -- 01/05/2025 AM (Reginasha): Found resting comfortably on the couch with her and baby. In very good spirits. Ambulating, urinating, and eating all without issue. Incision inspected and initial bandage removed; replaced with Miliplex. Still appreciated sub-dermal button-hole defect along left apex. No tenderness or evidence of bleeding. Blood pressures remain stable and outside of severe range. Patient denies s/sx of pre-eclampsia. 01/06/2025 AM (Karla): Patient reports feeling very well this morning. Her abdominal bandage is clean and the area is non-tender. We discussed her family h/o addiction last night and how she prefers to avoid narcotics; she has done well with Tylenol, Motrin, and Flexeril overnight. She would like to try the Gabapentin this morning to see what side effects she may experience while here. We discussed that her blood pressures are still elevated but stable; they are outside severe range. She denies any s/sx of pre-eclampsia. She has a blood pressure cuff at home and will be able to monitor. She was counseled to have a low threshold for seeking immediate medical evaluation if concerns arise and she was verbalized knowledge of the severe range threshold. Subjective Subjective Narrative: 29 yo G1 now P1001 s/p 38 week primary low transverse section, POD 2. She is reports feeling even better today than prior. She is ambulating, urinating, and eating all with minimal issue. She is well. Pain is well controlled and lochia is appropriate. Exam Physical Exam Vital signs: Temp Pulse Resp BP Pulse Ox 98.2 F 80 18 144/93 H 97 01/06/25 08:09 01/06/25 08:09 01/06/25 08:09 01/06/25 08:09 01/06/25 08:09 Narrative: general: Well nourished female in no immediate distress pulm: No overt respiratory distress Abd: Soft, non-distended, non-tender. Fundus firm and low. Incision C/D/I; Mipilex dressing in place Ext: +1 edema noted equally bilaterally Affect: Appropriate; pleasant Results Hemoglobin/Hematocrit: Hgb 10.5 g/dL (11.2-15.7) L D 01/05/25 06:05 Hct 30.7 % (36.0-46.0) L 01/05/25 06:05 Abnormal Lab Findings: Abnormal Labs 01/03/25 01/05/25 12:25 06:05 WBC 12.81 H 16.43 H RBC 3.55 L Hgb 10.5 L D Hct 30.7 L Absolute Neutrophils 13.77 H Absolute Monocytes 1.12 H Anion Gap 11.5 H Alkaline Phosphatase 247 H Total Protein 6.1 L Albumin 3.0 L
[2025-01-06] MEDS: Gabapentin 300 MG CAP PO (08:38)
--- NOTE | 2025-01-06 11:22 | DSE_ITS ---
Date of service: 01/06/25 Time of Service: 11:22 DS: Diagnosis Discharge Diagnosis (1) S/P section: Status: Acute Discharge Plan Disposition Patient Disposition: Home Condition: Good Discharge Details Reason For Visit: Labor Admit Date/Time: 01/03/25 13:08 Admit Provider: Manny Renee Attending Provider: Manny Renee Primary Care Provider: Manny Renee Hospital Course Hospital Course: 29-year-old G1 now P1 001 presented to labor and delivery at 38 weeks for an induction of labor for preeclampsia without severe features. She was induced with Cytotec and augmented with Pitocin. She received an epidural. However, shortly after initiating Pitocin, she began to exhibit concerning changes in the heart rate monitoring including episodes of recurrent D cells as well as a prolonged deceleration following AROM. The patient ultimately decided to proceed with section. A primary low-transverse section was performed on 01/04/2025 without issue. Her recovery course was unremarkable, and she met all milestones appropriately. She breast-fed without issue. At no point during her stay did she develop concerns for severe features and she did not require magnesium therapy. She declined contraception, and is still considering her options, though she is leaning towards rhythm method. She has a blood pressure cuff at home and will monitor her blood pressures at home. She was encouraged to have a low threshold for seeking immediate medical evaluation if concerns arise. She was discharged to home on January 06, 2025; of note patient reported a family history of addiction and opted for discharge without narcotics. Pain was well-controlled on Tylenol and Motrin primarily with Flexeril and gabapentin as needed. Home Meds and New Rx's Prescriptions: New cyclobenzaprine 10 mg Tablet 10 mg PO TID PRN PRN10 Days Qty: 20 0RF docusate sodium [Colace] 100 mg Capsule 100 mg PO BID PRN PRN10 Days Qty: 20 0RF gabapentin 300 mg Capsule 300 mg PO BID 5 Days Qty: 10 0RF ibuprofen 600 mg Tablet 600 mg PO Q6H PRN PRN10 Days Qty: 30 0RF Discharge Instructions Instructions: Control After Having a Baby, Taking Care of Yourself After You Have a Baby Additional Instructions: - Take medications as prescribed - Make sure to attend your appointments as scheduled - A well-rounded, healthy diet and consistent hygeine is important for optimized healing - Avoid any repeated heavy lifting (no more than 10 lbs) - Avoid repeated stair use - Avoid driving while using narcotics - If you have an incision, be sure to keep it clean with simple soap and water; avoid scrubbing - Nothing inserted vaginally, including but not limited to, no tampons, douching, or sexual intercourse, for a full 6 weeks and/or until cleared by your physician - Please have a low threshold for seeking immediate medical evaluation if you have any light-headedness, dizziness, fevers, chills, visual changes, nausea, vomiting, abdominal pain refractory to pain medications, a sudden and persistent increase in bleeding, difficulties with urinating, greater than 3 days without a bowel movement, or any other concerning symptoms - If you find yourself having a difficult time bonding with your baby and/or having thoughts of harming yourself or others, please reach out to the hospital ([facility] [phone]) and/or your physician immediately Free 07/03 confidential support for and new moms with concerns for post depression: [phone]) Stand Alone Forms: BC Instructions, BC Discharge Instruc Referrals: Giana Acosta DO [OSTEOPATHIC DOCTOR] - Activity:: Pelvic Rest Equipment/Supplies:: No Equipment Needed Diet:: Normal Diet Discharge Orders Discharge Orders: Discharge Order (Routine); Ordered 01/06/25 Ordered By: Giana Acosta OB:DS Summary Contraception Discussed Contraception Discussed: Yes, [place] Gender-Baby A: Male weight: 5 lb 2.012 oz Status at Discharge Functional status at discharge: independent ambulation Overall status at discharge: patient is progressing back to baseline Mental Status: mental status grossly normal Speech and Movement: speech and movement normal Mood: congruent mood Affect: normal affect Quality:SDOH Health Related Social Needs: Health related social needs inadequate housing (Z59.1) , education (Z55.6) Health related social needs details NA Health related social needs details: NA Exam Physical Exam Vital signs: Temp Pulse Resp BP Pulse Ox 98.2 F 80 18 144/93 H 97 01/06/25 08:09 01/06/25 08:09 01/06/25 08:09 01/06/25 08:09 01/06/25 08:09 Constitutional Comments: General: Well nourished female in no immediate distress HEENT: Normocephalic Pulm: No overt respiratory distress Abd: Soft, non-distended, non-tender; fundus firm and low Ext: Trace edema noted equally bilaterally Psyche: Appropriate affect PFSH All Active Problems Anxiety and depression (Chronic) S/P section (Acute) Pre-eclampsia (Acute) Gestational hypertension affecting first (Acute) Social History Smoking/Tobacco Use Status: Never Smoking risk assessment performed?: Yes Alcohol Intake: former Drug use: Occasionally Substance use type: marijuana Housing: house Do you feel safe at home: Yes Do you feel safe in your relationship?: Yes History History 1 Para 0 Hx # Term Pregnancies Multiple births Hx # Pregnancies Ectopic pregnancies AB induced Hx Number of Living Children AB spontaneous DS: Data Vitals/I&O Vitals and I&O: Vital Signs Temperature 98.2 F 01/06/25 08:09 Temperature Source Oral 01/06/25 08:09 Pulse 80 01/06/25 08:09 Pulse Rhythm Regular 01/06/25 07:57 Respiratory Rate 18 01/06/25 08:09 Respiratory Depth Normal 01/05/25 19:30 Blood Pressure 144/93 H 01/06/25 08:09 Blood Pressure Mean 110 01/06/25 08:09 Pulse Oximetry 97 01/06/25 08:09 Oxygen Delivery Method Room Air 01/03/25 15:36 Oxygen Flow Rate 0 01/03/25 15:36 Pain Level 1 01/04/25 18:00 Comment MD and RN aware of BP. 01/06/25 08:09 Intake & Output 01/05/25 01/05/25 01/06/25 11:59 23:59 11:59 Intake Total 1899 / 1899 Output Total 750 / 1175 425 / 1175 Balance 1150 / 725 -425 / 725 Intake: IV 1899 Output: Urine 750 / 1175 425 / 1175 Other: Urine Color Light Kristen Urine Appearance Clear
[2025-01-06 11:33] VITALS: BP 138/88; PULSE 73; RESP 18; TEMP 36.9
== END 2025-01-06 12:20 | disposition home or self-care (01) | DRG 788 ==
LOC: BCD 01-04 10:40 → OBS 01-04 10:40
PROVIDERS: Obstetrics & Gynecology; Admitting Provider Family Medicine; PCP Family Medicine; Visit Provider Family Medicine
PROC: 10D00Z1 Extraction of Products of Conception, Low, Open Approach (ICD-10-PCS; CPT 59514; principal; 2025-01-04 09:00)
DX: O14.04 Mild to moderate pre-eclampsia, complicating childbirth; Z37.0 Single live birth; Z3A.38 38 weeks gestation of pregnancy; O76 Abnormality in fetal heart rate and rhythm complicating labor and delivery; O99.824 Streptococcus B carrier state complicating childbirth; O99.344 Other mental disorders complicating childbirth; F32.A Depression, unspecified; O77.0 Labor and delivery complicated by meconium in amniotic fluid; F41.0 Panic disorder [episodic paroxysmal anxiety]
CPT/HCPCS: 59514; 00123; 36415; 80053; 85027; 86850; 86900; 86901; 59025; 59200; 82565; 84156; 84550; 85025; 88307; G0378; J0456; J0665; J0690; J1885; J1920; J2274; J2371; J2405; J3010; J3490